=== PATIENT | male | born 1950 | race Caucasian/White ===

== ENCOUNTER → 2017-07-09 | Outpatient (CLI) | payer MEDICARE ==
--- NOTE | 2017-07-09 13:49 | Diagnostic Imaging Report ---
Clinical Indication: Cough, shortness of breath Technique: Spiral acquisitions obtained through the chest. No IV contrast utilized, per referring physician request. Multiplanar reconstructions generated. Total dose length product 723.58 mGycm. CTDIvol(s) 19.35 mGy. Dose reduction achieved using automated exposure control Comparison: none Findings: The lungs are hyperinflated, and there are small bullae in the bilateral upper lobes. Minimal atelectatic changes are seen at both lung bases. Some atelectasis or scarring is also seen in the medial right middle lobe. No infiltrates, effusions, masses, or nodules are demonstrated. The heart size is normal. No evidence of pericardial effusion. There are coronary artery calcifications. There are some aortic valvular calcifications. No mediastinal or hilar mass or adenopathy. The included portions of the thyroid are unremarkable. No axillary or chest wall mass or adenopathy. The esophagus is unremarkable. The bones demonstrate degenerative spondylosis changes. The included upper abdominal anatomy demonstrates a small diverticulum off the gastric cardia. There is a calcification in the upper pole of the left kidney. Suspect that this is arterial rather than calyceal. Impression: Evidence of COPD No acute pulmonary process Minimal basilar atelectatic changes Incidental findings as noted, including left upper pole renal calyceal versus arterial calcification, small gastric diverticulum, degenerative spondylosis The CT scanner at [facility] is accredited by the [employer] and the scans are performed using protocols designed to limit radiation exposure to as low as reasonably achievable to attain images of sufficient resolution adequate for diagnostic evaluation.
== END | disposition home or self-care (01) ==
LOC: CAT 10:02
DX: R05 Cough (principal); J44.9 Chronic obstructive pulmonary disease, unspecified; M47.9 Spondylosis, unspecified; K31.4 Gastric diverticulum
CPT/HCPCS: 71250

== ENCOUNTER 2018-01-07 22:37 | Emergency (ER) | payer MEDICARE ==
[~2018-01-07] VITALS: Ht 182.9 cm; Wt 87.5 kg
[2018-01-07 22:50] VITALS: BP 162/83
--- NOTE | 2018-01-07 23:05 | Emergency Room Report ---
History of Present Illness General Chief Complaint: Nosebleed Source: Patient Present Illness HPI Patient presents with nosebleed. Started about 10 PM. He had an episode about a week ago according to his . That stopped spontaneously. It's coming from the front on the right side. He had nosebleeds as a child. He takes Advil frequently for headaches. He doesn't have a headache at this time. He denies any other blood thinners or trauma. There's no fever. H/O migraines. Occasionally takes Maxalt. No NVD, dyspnea, chest pain, palpitations, rashes, bruising, change in vision. 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 Nursing Documentation: PMH: Agreed; PSxH: Agreed Nursing Documentation-PMH Past Medical History: No Stated History Review of Systems Constitutional: Reports: see HPI ENT: Reports: see HPI Cardiovascular: Denies: chest pain Gastrointestinal: Denies: nausea Skin: Denies: rash Neurological: Reports: see HPI Hematologic/Lymphatic: Reports: see HPI Physical Exam Vital Signs Date Time Temp Pulse Resp B/P (MAP) Pulse Ox O2 Delivery O2 Flow Rate FiO2 01/07/18 22:38 97.6 83 17 157/85 96 Room Air 97.5 Sp02 EP Interpretation: reviewed, normal General Appearance: well appearing, no apparent distress, GCS 15 Head: normocephalic Eyes: bilateral eye normal inspection, bilateral eye PERRL ENT: moist mucus membranes, other - blood coming from front of R nose Neck: supple Respiratory: lungs clear, normal breath sounds Cardiovascular #1: regular rate, rhythm Cardiovascular #2: 2+ radial (R) Gastrointestinal: normal inspection, normal bowel sounds, non tender, no mass, non-distended Musculoskeletal: back normal, gait/station normal, normal range of motion Neurologic: alert, oriented x3, grossly normal Psychiatric: mood/affect normal Skin: normal inspection, warm/dry Procedures Additional Procedure Procedure Narrative Epistaxis control: after packing with lidocaine and epi on cotton, lesion identified. Initial cautery with AgNO3 caused re-bleed. Repacked with lido and epi and pressure applied. Recauterized with good results. No more bleed with observation for 30 minutes post cautery. Medical Decision Making Diagnostic Impression: Primary Impression: Epistaxis ER Course Patient presents with epistaxis. Differential includes nasal lesion, coagulopathy, renal dysfunction amongst others. This appears to be anterior. The patient will be packed with lidocaine and epinephrine. After that lesion will be sought and we'll attempt to use cautery. Slightly hypertensive. This is probably not the cause but will be re-evaluated. Labs normal. See procedure note. BP decreased to normal. Patient tolerated cautery and bleeding controlled. C/O congestion. Benadryl given. Warned of possible re-bleed and reviewed epistaxis instructions and avoidance of advil, aspirin. Patient stable for outpatient observation and treatment. Laboratory Tests Test 01/07/18 23:12 White Blood Count 6.6 K/UL (4.8-10.8) Red Blood Count 4.34 M/UL (4.70-6.10) L Hemoglobin 14.3 G/DL (14.2-18.0) Hematocrit 39.9 % (42.0-52.0) L Mean Corpuscular Volume 92 FL (80-99) Mean Corpuscular Hemoglobin 32.9 PG (27.0-31.0) H Mean Corpuscular Hemoglobin Concent 35.8 G/DL (32.0-36.0) Red Cell Distribution Width 11.2 % (11.6-14.8) L Platelet Count 224 K/UL (150-450) Mean Platelet Volume 6.5 FL (6.5-10.1) Neutrophils (%) (Auto) 65.2 % (45.0-75.0) Lymphocytes (%) (Auto) 20.5 % (20.0-45.0) Monocytes (%) (Auto) 11.1 % (1.0-10.0) H Eosinophils (%) (Auto) 1.9 % (0.0-3.0) Basophils (%) (Auto) 1.4 % (0.0-2.0) Prothrombin Time 10.7 SEC (9.30-11.50) Prothrombin Time INR 1.0 (0.9-1.1) PTT 27 SEC (23-33) Sodium Level 142 MMOL/L (136-145) Potassium Level 3.7 MMOL/L (3.5-5.1) Chloride Level 107 MMOL/L (98-107) Carbon Dioxide Level 27 MMOL/L (21-32) Anion Gap 8 mmol/L (5-15) Blood Urea Nitrogen 22 mg/dL (7-18) H Creatinine 0.8 MG/DL (0.55-1.30) Estimate Glomerular Filtration Rate > 60 mL/min (>60) Glucose Level 94 MG/DL (74-106) Calcium Level 9.1 MG/DL (8.5-10.1) Total Bilirubin 0.4 MG/DL (0.2-1.0) Aspartate Amino Transferase (AST) 28 U/L (15-37) Alanine Aminotransferase (ALT) 31 U/L (12-78) Alkaline Phosphatase 67 U/L (46-116) Total Protein 7.0 G/DL (6.4-8.2) Albumin 3.5 G/DL (3.4-5.0) Globulin 3.5 g/dL Albumin/Globulin Ratio 1.0 (1.0-2.7) Last Vital Signs Date Time Temp Pulse Resp B/P (MAP) Pulse Ox O2 Delivery O2 Flow Rate FiO2 01/08/18 00:30 97.6 81 16 162/83 96 Room Air 97.6 Status: improved Disposition: HOME, SELF-CARE Condition: Improved Scripts Diphenhydramine Hcl* (BENADRYL*) 25 Mg Capsule 25 MG ORAL Q6H PRN for Itching, #10 CAP Prov: Goran Phipps M.D. 01/08/18 Referrals: NON PHYSICIAN (PCP) Goran Phipps M.D. Jan 07, 2018 23:05
[2018-01-07] MEDS ORDERED: Silver Nitrate Stick TOPIC ONE (23:15)
[2018-01-07 23:20] LABS: BASOPHILS % (AUTO) 1.4 % (0.0-2.0); EOSINOPHILS % (AUTO) 1.9 % (0.0-3.0); HEMATOCRIT 39.9 % (42.0-52.0); HEMOGLOBIN 14.3 G/DL (14.2-18.0); LYMPHOCYTES % (AUTO) 20.5 % (20.0-45.0); MEAN CORPUSCULAR VOLUME 92 FL (80-99); MONOCYTES % (AUTO) 11.1 % (1.0-10.0); NEUTROPHILS % (AUTO) 65.2 % (45.0-75.0); PLATELET COUNT 224 K/UL (150-450); RED BLOOD COUNT 4.34 M/UL (4.70-6.10); RED CELL DISTRIBUTION WIDTH 11.2 % (11.6-14.8); WHITE BLOOD COUNT 6.6 K/UL (4.8-10.8)
[2018-01-07 23:29] LABS: ANION GAP 8 mmol/L (5-15); BLOOD UREA NITROGEN 22 mg/dL (7-18); CALCIUM 9.1 MG/DL (8.5-10.1); CARBON DIOXIDE 27 MMOL/L (21-32); CHLORIDE 107 MMOL/L (98-107); CREATININE 0.8 MG/DL (0.55-1.30); POTASSIUM 3.7 MMOL/L (3.5-5.1); SODIUM 142 MMOL/L (136-145)
[2018-01-07 23:34] LABS: ALANINE AMINOTRANSFERASE 31 U/L (12-78); ALBUMIN 3.5 G/DL (3.4-5.0); ALKALINE PHOSPHATASE 67 U/L (46-116); ASPARTATE AMINO TRANSFERASE 28 U/L (15-37); BILIRUBIN,TOTAL 0.4 MG/DL (0.2-1.0)
[2018-01-08] MEDS ORDERED: BENADRYL25 MG ORAL (00:13)
[2018-01-08 00:30] VITALS: BP 162/83
== END 2018-01-08 00:30 | disposition home or self-care (01) ==
LOC: EMR 22:54
DX: R04.0 Epistaxis (principal); I10 Essential (primary) hypertension
CPT/HCPCS: 30901; 36415; 80053; 85025; 85610; 85730; 99283

== ENCOUNTER 2019-12-16 16:52 | Emergency (ER) | payer MEDICARE ==
[~2019-12-16] VITALS: Ht 182.9 cm; Wt 83.9 kg
[~2019-12-16 16:52] MED LIST: BENADRYL25 MG ORAL
[2019-12-16] MEDS ORDERED: LIPITOR20 MG ORAL (17:01)
[2019-12-16] MEDS ORDERED: LOSARTAN POTASS25 MG ORAL (17:01)
[2019-12-16 17:05] VITALS: BP 135/77
[2019-12-16 17:43] VITALS: BP 121/79
--- NOTE | 2019-12-16 20:46 | Emergency Room Report ---
History of Present Illness General Chief Complaint: Laceration Source: Patient Present Illness HPI 69-year-old male presents the ED for evaluation of laceration. States that he cut his left index finger today while trying to open oyster with a knife. Patient is declining a tetanus shot today. Denies pain. Denies any other injuries. No other aggravating relieving factors. 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 Patient History Past Medical History: HTN Past Surgical History: none Pertinent Family History: none Social History: Denies: smoking, alcohol use, drug use Immunizations: UTD Reviewed Nursing Documentation: PMH: Agreed; PSxH: Agreed Nursing Documentation-PMH Past Medical History: No History, Except For Hx Hypertension: Yes Review of Systems All Other Systems: negative except mentioned in HPI Physical Exam Vital Signs Date Time Temp Pulse Resp B/P (MAP) Pulse Ox O2 Delivery O2 Flow Rate FiO2 12/16/19 16:56 96.4 75 18 135/77 (96) 94 Room Air Sp02 EP Interpretation: reviewed, normal General Appearance: no apparent distress, alert, GCS 15, non-toxic Head: normocephalic Eyes: bilateral eye normal inspection, bilateral eye PERRL ENT: normal ENT inspection Neck: normal inspection Respiratory: normal inspection Cardiovascular #1: normal inspection Gastrointestinal: normal inspection Rectal: deferred Genitourinary: no CVA tenderness Musculoskeletal: back normal, normal range of motion, gait/station normal, non- tender Neurologic: alert, motor strength/tone normal, oriented x3, sensory intact, responsive, speech normal Psychiatric: normal inspection Skin: other - 1cm flap laceration to distal aspect L index finger, L middle finger. full ROM noted. no acitve bleeding Lymphatic: normal inspection Procedures Laceration/Wound Repair Laceration/Wound Repair : Consent: Verbal Wound Location: upper extremity Wound's Depth, Shape: flap Wound Explored: clean Betadine Prep?: No Wound Debrided: minimal Wound Repaired With: Dermabond Layer Closure?: No Sterile Dressing Applied?: Yes Splint Applied?: No Sling Applied?: No Patient Tolerated: Well Complications: None Medical Decision Making Diagnostic Impression: Primary Impression: Laceration ER Course Hospital Course 21-year-old M presents to ED s/p laceration L index + middle finger using knife Clinical course Patient placed on stretcher. After initial history and physical wound is irrigated. Laceration was not deep. I believe could be repaired effectively with Dermabond. Patient agrees repaired without complication. Dressing applied. Safe for discharge close outpatient follow-up Diagnosis - laceration Stable and discharged to home. wound Care instructions given. Followup with PMD. Return to ED if any signs of infection develop Last Vital Signs Date Time Temp Pulse Resp B/P (MAP) Pulse Ox O2 Delivery O2 Flow Rate FiO2 12/16/19 17:43 97.0 79 18 121/79 97 Room Air Status: improved Disposition: HOME, SELF-CARE Condition: Stable Referrals: NON PHYSICIAN (PCP) Patient Instructions: Nonsutured Laceration Care Chaz Duff MD Dec 16, 2019 20:46
== END 2019-12-16 17:43 | disposition home or self-care (01) ==
LOC: EMR 17:27
DX: S61.211A Laceration without foreign body of left index finger without damage to nail, initial encounter (principal); S61.213A Laceration without foreign body of left middle finger without damage to nail, initial encounter; W26.0XXA Contact with knife, initial encounter; Y92.9 Unspecified place or not applicable; I10 Essential (primary) hypertension
CPT/HCPCS: 99282